=== PATIENT | male | born 1990 | race African-American/Black ===

== ENCOUNTER 2024-02-08 11:26 | Emergency (ER) | payer MEDICAID ==
[~2024-02-08] VITALS: Ht 167.6 cm; Wt 65.8 kg
[2024-02-08 11:49] VITALS: O2SAT 100
[2024-02-08 12:25] LABS: BASOPHILS % 0.4 % (0.0-2.0); EOSINOPHILS % 2.4 % (0.0-5.0); HEMATOCRIT. 45.5 % (42.0-52.0); HEMOGLOBIN. 14.6 g/dL (14.0-18.0); LYMPHOCYTES % 10.2 % (20.0-50.0); MEAN CORPUSCULAR HEMOGLOBIN 26.6 pg (28.0-32.0); MEAN CORPUSCULAR HGB CONC 32.1 g/dL (31.0-37.0); MEAN CORPUSCULAR VOLUME 83.1 fL (80.0-94.0); MEAN PLATELET VOLUME 9.2 fl (7.4-10.4); MONOCYTES % 8.6 % (2.0-8.0); NEUTROPHILS % 78.4 % (40.0-76.0); PLATELET 276 x1000/uL (130-400); RED BLOOD CELL COUNT 5.48 mill/uL (4.7-6.1); RED CELL DISTRIBUTION WIDTH 15.3 % (11.6-14.6); WHITE BLOOD COUNT 14.2 x1000/uL (4.5-11.0)
[2024-02-08 12:29] LABS: CHLORIDE 103 mEq/L (98-107); POTASSIUM 4.7 mEq/L (3.5-5.1); SODIUM 135 mEq/L (136-145)
[2024-02-08 12:30] LABS: CARBON DIOXIDE 28 mEq/L (21-32)
[2024-02-08 12:31] LABS: CALCIUM 9.6 mg/dL (8.7-10.4)
[2024-02-08 12:35] LABS: GLUCOSE 89 mg/dL (70-105); UREA NITROGEN BLOOD 9 mg/dL (9-23)
[2024-02-08 12:38] LABS: TROPONIN I HIGH SENSITIVITY < 4 ng/L (3.0-53)
[2024-02-08] MEDS ORDERED: BENZ100C86 MT (14:53)
[2024-02-08 15:10] VITALS: BP 125/81; PULSE 70; RESP 18; TEMP 37.05852; O2SAT 99
== END 2024-02-08 18:44 | disposition home or self-care (01) ==
LOC: ER 11:26
DX: J06.9 Acute upper respiratory infection, unspecified (principal); R51.9 Headache, unspecified
CPT/HCPCS: 80048; 85025; 84484; 36415; 71045; 93005; 99285; Z7610